=== PATIENT | female | born 1960 | race Caucasian/White ===

== ENCOUNTER 2018-03-03 07:01 | Emergency (ER) | payer BC, OTHER ==
--- NOTE | 2018-03-03 07:23 | UC ---
Respiratory Complaint HPI - HPI Summary HPI Summary: The patient is a 57-year-old female with a 2 day history of fever chills and cough. SHe feels slightly dyspneic with exertion. Her cough has not been productive. She has had no nausea vomiting or diarrhea. Denies any runny nose nasal congestion or sinus pain. She has no history of pneumonia. She denies any chest pain. She states her blood pressure tends to run on the low side. SHe has been feeling slightly weak and dizzy. She denies any leg pain or swelling. He states that her chest feels wheezy on the right side. - History of Current Complaint Chief Complaint: UCRespiratory Stated Complaint: FEVER CONGESTION Time Seen by Provider: 03/03/18 07:16 Hx Obtained From: Patient Hx Last Menstrual Period: IUD in place Onset/Duration: Gradual Onset, Lasting Days Timing: Constant Severity Initially: Mild Severity Currently: Moderate Pain Intensity: 4 Pain Scale Used: 0-10 Numeric Character: Cough: Nonproductive Aggravating Factors: Allergens Alleviating Factors: Nothing Associated Signs And Symptoms: Positive: Dyspnea - with walking up hills, Fever , Chills, Wheezing - Allergies/Home Medications Allergies/Adverse Reactions: Allergies Allergy/AdvReac Type Severity Reaction Status Date / Time No Known Allergies Allergy Verified 03/03/18 07:15 PMH/Surg Hx/FS Hx/Imm Hx Previously Healthy: Yes - Surgical History Surgical History: Yes Surgery Procedure, Year, and Place: left hip arthroplasty/replacement - Family History Known Family History: Positive: Hypertension, Diabetes, Other - OA - Social History Alcohol Use: Weekly Alcohol Amount: 1-2 PER WEEK Substance Use Type: None Smoking Status (MU): Never Smoked Tobacco - Immunization History Most Recent Influenza Vaccination: 2014 Most Recent Tetanus Shot: 04/23/15 Most Recent Pneumonia Vaccination: HAS NOT HAD Review of Systems Constitutional: Fever, Chills, Fatigue Skin: Negative Eyes: Negative ENT: Negative Respiratory: Shortness Of Breath - with hill walking, Cough Cardiovascular: Negative Gastrointestinal: Negative Genitourinary: Negative Motor: Negative Neurovascular: Negative Musculoskeletal: Negative Neurological: Negative Psychological: Negative All Other Systems Reviewed And Are Negative: Yes Physical Exam Triage Information Reviewed: Yes Appearance: Well-Appearing, No Pain Distress, Well-Nourished Vital Signs: Initial Vital Signs Temp 97.1 F 03/03/18 07:08 Pulse 92 03/03/18 07:08 Resp 20 03/03/18 07:08 BP 94/76 03/03/18 07:08 Pulse Ox 96 03/03/18 07:08 Vital Signs Reviewed: Yes Eyes: Positive: Conjunctiva Clear ENT: Positive: Hearing grossly normal. Negative: Nasal congestion, Nasal drainage, Trismus, Muffled voice, Hoarse voice Neck: Positive: Supple, Nontender, No Lymphadenopathy Respiratory: Positive: No respiratory distress, Wheezing - right sided >>left Cardiovascular: Positive: RRR, No Murmur Musculoskeletal: Positive: ROM Intact, No Edema Neurological: Positive: Alert, Muscle Tone Normal Psychological Exam: Normal Skin Exam: Normal UC Diagnostic Evaluation - Laboratory O2 Sat by Pulse Oximetry: 96 - Radiology Xray Interpretation: Positive (See Comments) - INTERVAL APPEARANCE OF PATCHY DENSITY AT THE RIGHT LUNG BASE THAT COULD BE PNEUMONIA IN Radiology Interpretation Completed By: Radiologist Re-Evaluation - Re-Evaluation First Eval Re-Evaluation Time: 09:05 Change: Improved - now normotensive (about 136 /86) Respiratory Course/Dx - Differential Dx/Diagnosis Provider Diagnoses: pnuemonia Discharge - Sign-Out/Discharge Documenting (check all that apply): Patient Departure All imaging exams completed and their final reports reviewed: Yes - Discharge Plan Condition: Stable Disposition: HOME Prescriptions: Amoxicillin/Clavulanate TAB* [Augmentin TAB 875*] 875 mg PO BID #14 tab Patient Education Materials: Pneumonia (ED) Referrals: Jass Redd MD [Primary Care Provider] - 2 Weeks Additional Instructions: recheck in 3 days if still febrile recheck sooner for new or worsening symptoms robitussin or mucinex rest fluids the radiologist has suggested a follow up CXR to assure resolution of your pneumonia I suggest having that done in 2-3 weeks - Billing Disposition and Condition Condition: STABLE Disposition: Home
--- NOTE | 2018-03-03 08:06 | RAD ---
INDICATION: Fever and cough COMPARISON: Chest x-ray dated May 07, 2015 TECHNIQUE: PA and lateral views of the chest were obtained. FINDINGS: The heart and mediastinum are normal in size and contour. There is questionable patchy density at the right lower lung not definitely seen on the previous chest x-ray. On the lateral view this appears to be localized to the posterior lower thorax. Elsewhere the lungs are grossly clear. Visualized bones are normal for the patient's age. There is no radiographic evidence of free air beneath the diaphragm IMPRESSION: INTERVAL APPEARANCE OF PATCHY DENSITY AT THE RIGHT LUNG BASE THAT COULD BE PNEUMONIA IN THE CORRECT CLINICAL SETTING. I RECOMMEND FOLLOW-UP CHEST X-RAY AFTER APPROPRIATE COURSE OF THERAPY TO ASCERTAIN RESOLUTION.
[2018-03-03] MEDS ORDERED: NS 0.9% 1000 ML* 1,000 ML BOLUS ONE (08:13)
[2018-03-03] MEDS ORDERED: cefTRIAXone VIAL(*) 1,000 MG in NS 0.9% 50 ML* 50 ML IVPB ONE (08:13)
[2018-03-03] MEDS ORDERED: cefTRIAXone VIAL(*) 1,000 MG VIAL ONE (08:25)
[2018-03-03 09:36] VITALS: BP 134/84
== END 2018-03-03 10:42 | disposition home or self-care (01) ==
LOC: UCEAST 07:01
DX: J18.9 Pneumonia, unspecified organism (principal); Z96.642 Presence of left artificial hip joint
CPT/HCPCS: 71046; 96360; 96361; 99212; G0463; J0696

== ENCOUNTER 2018-10-21 07:00 | Inpatient (IN) | payer BC ==
--- NOTE | 2018-10-12 10:22 | HP ---
HISTORY AND PHYSICAL: DATE OF ADMISSION/SURGERY: 10/21/18 DATE OF OFFICE VISIT: 10/08/18 SURGEON: Bee Spicer MD* (dictated by GIOVANA Fair). PROCEDURE: Right total hip arthroplasty. CHIEF COMPLAINT: Right hip pain. HISTORY OF PRESENT ILLNESS: Ms. Abel is a 57-year-old who complains of right hip pain. She has failed conservative treatment and elected to proceed with a right total hip arthroplasty. PAST MEDICAL HISTORY: Denies. PAST SURGICAL HISTORY: Left total hip arthroplasty, labral repair on the left hip, and a tonsillectomy. CURRENT MEDICATIONS: None. ALLERGIES: None. FAMILY HISTORY: Coronary artery disease. SOCIAL HISTORY: She is a 57-year-old female. She lives with her spouse. She does not smoke or use drugs. She uses occasional alcohol. REVIEW OF SYSTEMS: A complete 14-point review of systems was reviewed with the patient, was all negative and noncontributory. She denies history of DVT, PE, hepatitis, HIV, or anesthesia problems. PHYSICAL EXAMINATION GENERAL: She is well developed, well nourished, in no acute distress. She is alert and oriented x3, pleasant mood and appropriate affect. VITAL SIGNS: She stands 65 inches tall, weighs 169 pounds, blood pressure 116/ 68, heart rate is 68. MUSCULOSKELETAL: Right lower extremity: Skin is intact. There are no open wounds or abrasions. She walks with an antalgic type gait favoring her right hip. She has 95 degrees of hip flexion, 0 degrees of internal rotation, 35 degrees of external rotation. She is able to dorsiflex and plantarflex. There is a 2+ dorsalis pedis pulse and an intact sensation. ASSESSMENT AND PLAN: Ms. 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 She has failed conservative treatment and elected to proceed with a right total hip arthroplasty. Surgery is scheduled for 10/21/[address] Spicer discussed the risks and benefits of the surgery at today's visit and all of her questions were answered. She will follow up with Dr. Spicer 2 weeks after the surgery. GIOVANA FAIR [id number]/[facility] #: [id number] [facility]
[~2018-10-21 07:00] MED LIST: Acetaminophen IV 1GM/100ML * 1,000 MG/100 ML VIAL IVPB ONE; Buffered Lidocaine 1% SYRIN* 1 ML/SYRINGE INTRADERM ONE; Dexamethasone IV* 4 MG/ML 1 ML (4 MG) IV SLOW PU ONE; Famotidine IV* 10 MG/ML 2 ML (20 mg) IV ONE; Gabapentin CAP(*) 300 MG PO ONE; Lactated Ringers 1000 ML Bag* 1,000 ML IV SCH; Tranexamic Acid 1,000 MG in NS 0.9% 50 ML* (outpatient use) IV SCH; celeCOXIB CAP* 200 MG PO ONE
--- OUTSIDE RECORDS SUMMARY | 2018-10-21 07:04 | XMS REPORT | Continuity of Care Document ---
:1960 External Reference #:[id number] Author Name Jazzmine Gomez Care Team Providers Name Role Phone Oneal Patel MD Care Team Information Supervisor [employer] Unavailable Jass Redd MD Primary Care Physician Unavailable Payers Date Identification Numbers Payment Provider Subscriber Effective: 2014 Policy Number: [id number] [facility] Cliff Rojas PayID: [id number] [address] [place] [address] Advance Directives Description No Information Available Problems Active Problems Provider Date Localized, primary osteoarthritis of the pelvic Bee Spicer M.D. Onset: region and thigh Localized, primary osteoarthritis Bee Spicer M.D. Onset: 03/09/2015 Prosthetic arthroplasty of the hip Bee Spicer M.D. 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 07/02/2018 Capsules to dental work No Active Unknown 06/27/2015 - Medications 07/31/2015 Percocet 1-2 tablets by 90tabs M16.12 Dali 05/07/2015 - 5-325mg mouth every 4-6 SANDIP [place] 06/22/2015 Tablets hours as needed for pain Colace 1 by mouth up to 3 90caps M16.12 Dali 05/07/2015 - 100mg times a day as S[place]IP [place] 06/22/2015 Capsules needed for constipation. Coumadin 1 by mouth daily 45tabs M16.12 Dali 05/07/2015 - 2mg post operatively or SANDIP [place] 06/22/2015 Tablets as directed by freida/. do not take this medication prior to surgery Ibuprofen as needed Unknown - 200mg 06/22/2015 Tablets Tylenol as needed Unknown - 325mg 06/22/2015 Tablets Cephalexin Stefanie Silva - 500mg Unknown Capsules Immunizations Description No Information Available Vital Signs Date Vital Result Comment 10/08/2018 8:36am Height 65 inches 5'5" Weight 169.00 lb Heart Rate 68 /min BP Systolic 116 mmHg BP Diastolic 68 mmHg Respiratory Rate 18 /min Body Temperature 97.3 F Pain Level 2 BMI (Body Mass Index) 28.1 kg/m2 07/30/2018 8:15am Height 65 inches 5'5" Weight 166.00 lb BP Systolic 111 mmHg BP Diastolic 69 mmHg Respiratory Rate 16 /min Pain Level 5 BMI (Body Mass Index) 27.6 kg/m2 06/05/2016 1:27pm Heart Rate 68 /min BP Systolic 120 mmHg BP Diastolic 70 mmHg Respiratory Rate 16 /min Body Temperature 97.2 F 05/15/2016 2:38pm Height 65 inches 5'5" Weight 170.00 lb Heart Rate 74 /min BP Systolic Sitting 122 mmHg BP Diastolic Sitting 78 mmHg Respiratory Rate 16 /min Body Temperature 97.7 F BMI (Body Mass Index) 28.3 kg/m2 05/14/2016 1:36pm Height 65 inches 5'5" Weight 170.00 lb Pain Level 0 BMI (Body Mass Index) 28.3 kg/m2 08/29/2015 8:05am Height 65 inches 5'5" Weight 175.00 lb Pain Level 0 BMI (Body Mass Index) 29.1 kg/m2 06/27/2015 8:15am Height 65 inches 5'5" Weight 175.00 lb Pain Level 0 BMI (Body Mass Index) 29.1 kg/m2 05/28/2015 12:51pm Height 65 inches 5'5" Weight 175.00 lb Body Temperature 96.2 F BMI (Body Mass Index) 29.1 kg/m2 05/07/2015 9:34am Height 65 inches 5'5" Weight 175.00 lb Heart Rate 69 /min BP Systolic Sitting 116 mmHg BP Diastolic Sitting 73 mmHg Body Temperature 98.2 F Pain Level 4 today BMI (Body Mass Index) 29.1 kg/m2 03/09/2015 3:28pm Height 65 inches 5'5" Weight 175.00 lb BMI (Body Mass Index) 29.1 kg/m2 12/28/2014 8:38am Height 65 inches 5'5" Weight 175.00 lb Heart Rate 73 /min BP Systolic 119 mmHg BP Diastolic 82 mmHg Pain Level 3 BMI (Body Mass Index) 29.1 kg/m2 Results Test Date Facility Test Result H/L Range Note CBC Auto Diff 10/08/2018 [facility] White Blood 4.6 10^3/uL N 3.5-10.[address] [place] [address] [phone] Red Blood Count 4.61 10^6/uL N 3.70-4.87 Hemoglobin 14.3 g/dL N 12.0-16.0 Hematocrit 41 % N 35-47 Mean Corpuscular Volume 89 fL N 80-97 Mean Corpuscular Hemoglobin 31 pg N 27-31 Mean Corpuscular HGB Conc 35 g/dL N 31-36 Red Cell Distribution Width 14 % N 10.5-15 Platelet Count 291 10^3/uL N 150-450 Mean Platelet Volume 7.4 fL N 7.4-10.4 Abs Neutrophils 2.5 10^3/uL N 1.5-7.7 Abs Lymphocytes 1.6 10^3/uL N 1.0-4.8 Abs Monocytes 0.4 10^3/uL N 0-0.8 Abs Eosinophils 0.1 10^3/uL N 0-0.6 Abs Basophils 0.0 10^3/uL N 0-0.2 Abs Nucleated RBC 0.0 10^3/uL Granulocyte % 54.3 % Lymphocyte % 35.0 % Monocyte % 8.3 % Eosinophil % 1.5 % Basophil % 0.9 % Nucleated Red Blood Cells % 0.1 Urinalysis Profile 10/08/2018 [facility] Urine Color Straw [address] [place] [address] [phone] Urine Appearance Clear Urine Specific [place] 1.004 Low 1.010-1.030 Urine pH 5.0 N 5-9 Urine Urobilinogen Negative Negative Urine Ketones Negative Negative Urine Protein Negative Negative Urine Leukocytes 2+ Abnormal Negative Urine Blood 1+ Abnormal Negative Urine Nitrite Negative Negative Urine Bilirubin Negative Negative Urine Glucose Negative Negative Urine White Blood Cell Absent Absent Urine Red Blood Cell Trace(0-2/hpf) Absent Urine Bacteria 1+ Abnormal Absent Urine Squamous Epithelial Cell Present Abnormal Absent Comp Metabolic Panel 10/08/2018 [facility] Sodium 139 mmol/L N 135-145 [address] [place] [address] [phone] Potassium 4.3 mmol/L N 3.5-5.0 Chloride 105 mmol/L N 101-111 Co2 Carbon Dioxide 28 mmol/L N 22-32 Anion Gap 6 mmol/L N 2-11 Glucose 83 mg/dL N 70-100 Blood Urea Nitrogen 15 mg/dL N 6-24 Creatinine 0.68 mg/dL N 0.51-0.95 BUN/Creatinine Ratio 22.1 High 8-20 Calcium 9.7 mg/dL N 8.6-10.3 Total Protein 7.1 g/dL N 6.4-8.9 Albumin 4.6 g/dL N 3.2-5.2 Globulin 2.5 g/dL N 2-4 Albumin/Globulin Ratio 1.8 N 1-3 Total Bilirubin 0.60 mg/dL N 0.2-1.0 Alkaline Phosphatase 77 U/L N 34-104 Alt 8 U/L N 7-52 Ast 16 U/L N 13-39 Egfr Non- 89.8 >60 Egfr 108.7 >60 1 Inr/Protime 10/08/2018 [facility] Inr 1.01 N 0.82-1.[address] [place] [address] [phone] Laboratory test 10/08/2018 [facility] Partial 30.8 seconds N 26.0-36.[address] [place] [address] PTT [phone] Type & Screen 10/08/2018 [facility] Patient B Positive [address] [place] [address] [phone] Antibody Screen POSITIVE Laboratory test 10/08/2018 [facility] Antibody Identification M finding [address] [place] [address] [phone] Antibody Id Autocontrol 0 Direct Guzman NEGATIVE Urine Culture And 10/08/2018 [facility] Urine Culture SEE RESULT [address] [place] [address] [phone] Xray 05/14/2016 [facility] Hip Left 2 Views <pending> [address] And Pelvis [id number] - [place] [phone] Laboratory test 05/07/2015 [facility] Antibody M 4, [address] [place] [address] [phone] Antibody Id Autocontrol 0 N Direct Antiglobulin Test NEGATIVE N Urine Culture And Sensitivities SEE RESULT BELOW 6 Type & Screen 05/07/2015 [facility] Patient Blood Type B Positive N [address] [place] [address] [phone] Antibody Screen POSITIVE N Comp Metabolic Panel 05/07/2015 [facility] Sodium 136 mmol/L N 133-[address] [place] [address] [phone] Potassium 4.0 mmol/L N 3.5-5.0 Chloride 102 mmol/L N 101-111 Co2 Carbon Dioxide 28 mmol/L N 22-32 Anion Gap 6 mmol/L N 2-11 Glucose 81 mg/dL N 70-100 Blood Urea Nitrogen 11 mg/dL N 6-24 Creatinine 0.70 mg/dL N 0.51-0.95 BUN/Creatinine Ratio 15.7 N 8-20 Calcium 9.3 mg/dL N 8.6-10.3 Total Protein 7.0 g/dL N 6.4-8.9 Albumin 4.3 g/dL N 3.2-5.2 Globulin 2.7 g/dL N 2-4 Albumin/Globulin Ratio 1.6 N 1-3 Total Bilirubin 0.40 mg/dL N 0.2-1.0 Alkaline Phosphatase 70 U/L N 34-104 Alt 7 U/L N 7-52 Ast 14 U/L N 13-39 Egfr Non- 87.9 N >60 Egfr 113.0 N >60 7 Laboratory test 05/07/2015 [facility] Partial 33.2 seconds N 26.0-36.3 [address] [place] [address] PTT [phone] Inr/Protime 05/07/2015 [facility] Inr 0.99 N 0.89-1.[address] [place] [address] [phone] CBC No Diff 05/07/2015 [facility] White Blood 6.7 10^3/uL N 4.8-10.[address] [place] [address] [phone] Red Blood Count 4.60 10^6/uL N 4.0-5.4 Hemoglobin 13.6 g/dL N 12.0-16.0 Hematocrit 42 % N 35-47 Mean Corpuscular Volume 90 fL N 80-97 Mean Corpuscular Hemoglobin 30 pg N 27-31 Mean Corpuscular HGB Conc 33 g/dL N 31-36 Red Cell Distribution Width 15 % N 10.5-15 Platelet Count 353 10^3/uL N 150-450 Mean Platelet Volume 7 um3 Low 7.4-10.4 Urinalysis Profile 05/07/2015 [facility] Urine Color Yellow [address] [place] [address] [phone] Urine Appearance Clear N Urine Specific [place] 1.012 N 1.010-1.030 Urine pH 5.0 N 5-9 Urine Urobilinogen Negative N Negative Urine Ketones Negative N Negative Urine Protein Negative N Negative Urine Leukocytes Negative N Negative Urine Blood 1+ Abnormal Negative Urine Nitrite Negative N Negative Urine Bilirubin Negative N Negative Urine Glucose Negative N Negative Urine White Blood Cell Trace(0-5/hpf) N Absent Urine Red Blood Cell Trace(0-2/hpf) N Absent Urine Bacteria Absent N Absent Urine Squamous Epithelial Cell Present Abnormal Absent 1 Because ethnic data is not always readily available, this report includes an eGFR for both -Americans and non- Americans. The National Kidney Disease Education Program (NKDEP) does not endorse the use of the MDRD equation for patients that are not between the ages of 18 and 70, are , have extremes of body size, muscle mass, or nutritional status, or are non- or non-. According to the National Kidney Foundation, irrespective of diagnosis, the stage of the disease is based on the level of kidney function: Stage Description GFR(mL/min/1.73 m(2)) 1 Kidney damage with normal or decreased GFR 90 2 Kidney damage with mild decrease in GFR 60-89 3 Moderate decrease in GFR 30-59 4 Severe decrease in GFR 15-29 5 Kidney failure <15 (or dialysis) 2 Standard intensity warfarin therapeutic range: 2.0-3.0 High intensity warfarin therapeutic range: 2.5-3.5 3 SEE RESULT BELOW Name: OMNICA ROJAS ANN : [address]: Bee Spicer MD Acct: [id number] Unit: [id number] AGE: 57 Location: [facility] Re10/08/18 SEX: F Status: REG REF SPEC: [id number] WISAM: 10/08/18-[address] [facility] [address]: Bee Spicer MD REQ: [id number] RECD: 10/08/183858 STATUS: JAMEY MAYER DR: Jass Redd MD _ SOURCE: URINE SPDESC: ORDERED: Urine Culture Urine Source: Random Procedure Result Reported Site Urine Culture Final 10/09/18- 1421 ML No Growth (<1,000 CFU/mL) * ML - Main Lab . END OF REPORT DEPARTMENT OF PATHOLOGY, [address] [place] [address] Milton Atkinson M.D. Director JAY[facility] # [id number] 4 SURGERY 05/15/15 5 SHOWING DOSAGE 6 SEE RESULT BELOW Name: MONICA ROJAS : [address]: Bee Spicer MD Acct: [id number] Unit: [id number] AGE: 54 Location: PAT Re05/07/15 SEX: F Status: REG REF SPEC: [id number] WISAM: 05/07/15-[address] [facility] [address]: Bee Spicer MD REQ: [id number] RECD: 05/07/15 STATUS: JAMEY MAYER DR: Jass Redd MD _ [facility] ORDERED: Urine Culture COMMENTS: SURGERY 05/15/15 Procedure Result Reported Site Urine Culture Final 05/08/15- 1033 ML No growth of clinically significant organisms * ML - MAIN LAB (PSC1) . END OF REPORT * ML=Testing performed at Main Lab DEPARTMENT OF PATHOLOGY, [address] [place] [address] Milton Atkinson M.D. Director [facility] # [id number] 7 Because ethnic data is not always readily available, this report includes an eGFR for both -Americans and non- Americans. The National Kidney Disease Education Program (NKDEP) does not endorse the use of the MDRD equation for patients that are not between the ages of 18 and 70, are , have extremes of body size, muscle mass, or nutritional status, or are non- or non-. According to the National Kidney Foundation, irrespective of diagnosis, the stage of the disease is based on the level of kidney function: Stage Description GFR(mL/min/1.73 m(2)) 1 Kidney damage with normal or decreased GFR 90 2 Kidney damage with mild decrease in GFR 60-89 3 Moderate decrease in GFR 30-59 4 Severe decrease in GFR 15-29 5 Kidney failure <15 (or dialysis) 8 SURGERY 05/15/15 Procedures Date Code Description Status 05/15/2015 77884 THR Total Hip Replacement Completed 05/15/2015 16653 THR Total Hip Replacement Completed Encounters Type Date Location Provider Dx Diagnosis Office Visit 07/30/2018 Orthopedic Bee Spicer, M25.551 Pain in right hip 8:00a [facility] M16.11 Unilateral primary osteoarthritis, right hip Z96.642 Presence of left artificial hip joint Office Visit 06/05/2016 1:30p Surgical Yehuda Lowry L03.012 [facility] MD, left finger FACS L03.811 Cellulitis of head [any part, except face] Office Visit 05/15/2016 2:45p [facility] 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 replacement surgery Z96.642 Presence of left artificial hip joint M25.552 Pain in left hip Office Visit 08/29/2015 8:00a Orthopedic Mamadou Alex47.1 [facility] following joint [facility] replacement surgery Z96.642 Presence of left artificial hip joint Office Visit 03/09/2015 Orthopedic Bee M17.12 Unilateral primary 2:30p [facility] Spicer osteoarthritis, left [facility] knee M25.552 Pain in left hip Office Visit 12/28/2014 8:30a Orthopedic Bee 715.15 Osteoarthrosis [facility] Spicer Localized Prim [facility] Pelvic & Thigh 719.45 Pain Joint Pelvic Region & Thigh Plan of Treatment Future Appointment(s):11/01/2018 11:30 am - Bee Spicer M.D. at [facility]10/21/2018 9:15 am - MIKAL Morataya at [facility]10/21/2018 9:15 am - GIOVANA Mahoney at [facility]10/21/2018 9:15 am - Bee Spicer M.D. at [facility]10/08/2018 - Bee Spicer M.D.M25.551 Pain in right hipFollow up:Follow up: 2 weeks after eatngkhE96.11 Unilateral primary osteoarthritis, right hip
--- OUTSIDE RECORDS SUMMARY | 2018-10-21 07:04 | XMS REPORT | Continuity of Care Document ---
:1960 External Reference #:[id number] Author Name Olu Arnold MD Address [address] [facility] [place] [address] Care Team Providers Name Role Phone Blossom Redd MD Care Team Information Tax Compliance Officer Unavailable Blossom Redd MD Primary Care Physician Unavailable Payers Date Identification Numbers Payment Provider Subscriber Effective: 2017 Policy Number: [id number] [place] [employer] Cliff Rojas Group Number: [id number] [address] PayID: [id number] [place] [address] Advance Directives Description No Information Available Problems Active Problems Provider Date Adult health examination Blossom Redd M.D. Onset: 04/23/2015 Arthralgia of the pelvic region and thigh Blossom Redd M.D. 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 ,[employer] Advance Directive The patient has an advance directive Tobacco Use Start: Unknown Never Smoked Cigarettes ETOH Use Rarely consumes alcohol Tobacco Use Start: Unknown Nonsmoker Smoking Status Reviewed: 09/29/18 Nonsmoker Allergies, Adverse Reactions, Alerts Active Allergies Reaction Severity Comments Date NKDA 06/23/2011 Inactive Allergies Nka 09/04/1997 Medications Active Medications SIG Qnty Indications Ordering Provider Date No Active Medications Unknown 12/29/2017 History Medications Cephalexin 1 by mouth twice 14tabs L03.012 Stefanie Licona, 05/14/2016 - 500mg a day for 7d [employer] 12/29/2017 Tablets No Active Unknown 11/14/2014 - Medications 05/14/2016 Physical Therapy treatment and Blossom Arzate 07/22/2005 - evaluation Devorah Redd 10/03/2006 l hip pain Ciloxan 1-2 QTTS In Both 5ml Stefanie Ricardo, 10/11/2002 - Eyes Q 2H W/A For [employer]IAN 10/31/2002 2D Then Q 4H For 3-5D Physical Therapy Treatment And Stefanie Licona, 10/11/2002 - Evaluation L Ankle [employer]IAN 06/11/2005 Strain Emycin 1 PO tid 30units Larry Hannah, 01/18/2001 - 333mg M.DAdali 10/11/2002 Prednisone 4 qd x 2 Days, 20tabs Larry Hannah, 01/18/2001 - 10mg Then 3 qd x 2 M.D. 10/11/2002 Tabs Days, Then 2 qd x 2 Days, Then 1 qd x 2 Days Zithromax 2 Tabs Day 1 6unkylee Harrison 07/25/2000 - 250mg Devorah Waters 07/30/2000 1 Tab qd Days 2 Thru 5 Medrol Dosepack as Directed 1units Brennan Coats 12/02/1999 - Devorah Carey 07/25/2000 [facility] 12/02/1999 - 10mg Devorah Carey 07/25/2000 Zantac 1 PO qd 7unkylee Coats 12/02/1999 - 150mg Devorah Carey 07/25/2000 Fioricet 1 PO qid prn For 15units Erica 05/08/1999 - Bubba Rolon, 05/15/1999 Without Afnp-C Codiene Immunizations CPT Code Status Date Vaccine Lot # [id number] Given 04/08/2018 Zoster (Shingles) Vaccine (HZV), Recombinant, [id number] Subunit, Adjuvanted [id number] Given 04/08/2018 Pneumococcal Conjugate Vacc-13 [id number] Given 12/29/2017 Zoster (Shingles) Vaccine (HZV), Recombinant, [id number] Subunit, Adjuvanted 73208 Given 04/23/2015 Tdap Tetanus, W Pertussis [id number] Given 01/02/1999 Td Immunization, For Use In Individuals 7 Years Or Older Vital Signs Date Vital Result Comment 09/29/2018 8:18pm BP Systolic 104 mmHg BP Diastolic 76 mmHg Heart Rate 60 /min Body Temperature 97.0 F Respiratory Rate 16 /min O2 % BldC Oximetry 99 % Ra Height 64.50 inches 5'4.50" Weight 166.00 lb BMI (Body Mass Index) 28.1 kg/m2 03/18/2018 3:08pm BP Systolic 100 mmHg BP Diastolic 58 mmHg Heart Rate 70 /min Body Temperature 97.3 F Respiratory Rate 17 /min O2 % BldC Oximetry 97 % Ra Height 64.50 inches 5'4.50" Weight 166.38 lb BMI (Body Mass Index) 28.1 kg/m2 12/29/2017 10:48am BP Systolic 126 mmHg BP Diastolic 56 mmHg Heart Rate 62 /min Body Temperature 97.7 F Respiratory Rate 15 /min Height 64.50 inches 5'4.50" Weight 167.38 lb BMI (Body Mass Index) 28.3 kg/m2 05/14/2016 11:43am BP Systolic 110 mmHg BP Diastolic 70 mmHg Heart Rate 60 /min Body Temperature 98.6 F Respiratory Rate 18 /min Weight 172.00 lb 04/23/2015 3:20pm BP Systolic 108 mmHg BP Diastolic 70 mmHg Heart Rate 66 /min Body Temperature 98.2 F Respiratory Rate 16 /min Height 65 inches 5'5" Weight 180.25 lb BMI (Body Mass Index) 30.0 kg/m2 01/15/2015 8:38am BP Systolic 120 mmHg BP Diastolic 70 mmHg Heart Rate 60 /min Body Temperature 98.0 F Respiratory Rate 18 /min Height 65 inches 5'5" Weight 178.00 lb BMI (Body Mass Index) 29.6 kg/m2 11/14/2014 8:33am BP Systolic 110 mmHg BP Diastolic 70 mmHg Heart Rate 84 /min Body Temperature 97.7 F Respiratory Rate 16 /min Height 65 inches 5'5" Weight 174.00 lb BMI (Body Mass Index) 29.0 kg/m2 10/25/2014 1:48pm BP Systolic 110 mmHg BP Diastolic 70 mmHg Heart Rate 60 /min Body Temperature 98.2 F Respiratory Rate 16 /min Height 65 inches 5'5" Weight 172.00 lb BMI (Body Mass Index) 28.6 kg/m2 11/18/2013 11:43am BP Systolic 122 mmHg BP Diastolic 88 mmHg Heart Rate 74 /min Body Temperature 98.5 F Respiratory Rate 16 /min Height 65 inches 5'5" Weight 164.00 lb BMI (Body Mass Index) 27.3 kg/m2 06/23/2011 2:53pm BP Systolic 102 mmHg BP Diastolic 60 mmHg Heart Rate 72 /min Respiratory Rate 14 /min Height 65 inches 5'5" Weight 160.00 lb BMI (Body Mass Index) 26.6 kg/m2 08/20/2009 8:03am BP Systolic 102 mmHg BP Diastolic 64 mmHg Heart Rate 66 /min Body Temperature 97.2 F Height 65 inches 5'5" Weight 149.00 lb BMI (Body Mass Index) 24.8 kg/m2 11/23/2006 9:31am BP Systolic 102 mmHg BP Diastolic 62 mmHg Heart Rate 68 /min Body Temperature 97.7 F Height 65 inches 5'5" Weight 162.00 lb BMI (Body Mass Index) 27.0 kg/m2 10/02/2006 3:28pm BP Systolic 110 mmHg BP Diastolic 62 mmHg Heart Rate 64 /min Body Temperature 97.9 F Height 65 inches 5'5" Weight 163.00 lb BMI (Body Mass Index) 27.1 kg/m2 06/11/2005 10:47am BP Systolic 102 mmHg BP Diastolic 60 mmHg Heart Rate 72 /min Height 65 inches 5'5" Weight 155.00 lb BMI (Body Mass Index) 25.8 kg/m2 05/14/2004 2:37pm BP Systolic 110 mmHg BP Diastolic 70 mmHg Heart Rate 74 /min Height 65 inches 5'5" Weight 159.00 lb BMI (Body Mass Index) 26.5 kg/m2 02/21/2003 7:05pm BP Systolic 102 mmHg BP Diastolic 56 mmHg Heart Rate 64 /min Body Temperature 98.0 F Height 65 inches 5'5" Weight 160.00 lb BMI (Body Mass Index) 26.6 kg/m2 10/31/2002 3:55pm BP Systolic 100 mmHg BP Diastolic 70 mmHg Body Temperature 98.7 F Weight 154.00 lb 10/11/2002 1:36pm BP Systolic 110 mmHg BP Diastolic 60 mmHg Body Temperature 98.8 F Weight 160.00 lb 01/18/2001 4:27pm BP Systolic 110 mmHg BP Diastolic 74 mmHg Body Temperature 98.6 F Weight 155.00 lb 08/26/2000 7:39pm BP Systolic 114 mmHg BP Diastolic 66 mmHg Heart Rate 64 /min Body Temperature 97.1 F Weight 147.00 lb 07/25/2000 10:16am BP Systolic 104 mmHg BP Diastolic 66 mmHg Heart Rate 76 /min Body Temperature 97.5 F Weight 148.50 lb 02/22/2000 10:23am BP Systolic 100 mmHg Ra, SM Cuff BP Diastolic 60 mmHg Ra, SM Cuff Heart Rate 72 /min Reg Body Temperature 97.0 F Tymp Weight 147.00 lb 12/02/1999 1:06pm BP Systolic 100 mmHg LA SM Cuff BP Diastolic 60 mmHg LA SM Cuff Heart Rate 60 /min Reg Body Temperature 97.5 F Weight 170.00 lb 05/08/1999 3:17pm BP Systolic 100 mmHg BP Diastolic 80 mmHg Body Temperature 97.8 F Weight 143.00 lb 01/02/1999 10:15am BP Systolic 98. mmHg BP Diastolic 70 mmHg Weight 151.00 lb 08/22/1998 11:46am Body Temperature 98.6 F Weight 151.00 lb 09/04/1997 3:01pm BP Systolic 114 mmHg BP Diastolic 70 mmHg Height 63.25 inches 5'3.25" Weight 154.00 lb Results Test Date Facility Test Result H/L Range Note Laboratory test 12/29/2017 [facility] Cytology SEE RESULT 1 finding Thinprep BELOW w/rfx([facility]) CBC Electronic 12/29/2017 Cameron Eliza(a) WBC 6.8 x10^3/UL 4.0-10.0 Fma RBC 4.61 x10^6/UL 3.93-6.00 HGB 13.8 g/dL 12.0-17.0 HCT 41 % 35-50 MCV 87.9 fL 80.0-95.0 MCH 29.9 pg 25.6-32.2 MCHC 34.1 g/dL 32.2-36.0 RDW-CV 13.6 % 11.6-14.4 PLT 291 x10^3/UL 163-400 MPV 9.5 fL 9.4-12.4 Jessica# 4.44 x10^3/UL 1.56-6.13 Lymph# 1.63 x10^3/UL 1.18-3.74 [place]# 0.63 x10^3/UL 0.24-0.82 Eos # 0.1 x10^3/UL 0.0-0.5 Baso # 0.03 x10^3/UL 0.01-0.08 Jessica% 65.3 % 34.0-70.0 Lymph % 23.9 % 20.0-52.0 [place]% 9.3 % 5.0-12.0 Eos% 1.0 % 0.7-7.0 Baso% 0.4 % 0.1-1.2 Laboratory test 12/29/2017 Rakesh Kay(a) Free T4 0.92 ng/dL 0.75- 1.54 finding TSH 1.05 mIU/L 0.50-6.00 Lipid Profile 12/29/2017 Rakesh Kay(a) Cholesterol 236 mg/dL High 120-200 Triglycerides 124 mg/dL 30-200 HDL Cholesterol 59 mg/dL 30-85 LDL (Calculated) 152 CALC High 0-129 VLDL Cholesterol 25 mg/dL 0-50 HDL Risk Factor 4.0 CALC 0.0-4.4 Comprehensive Metabolic 12/29/2017 Rakesh Kay(a) Sodium 137 mEq/L 134-149 Prof Potassium 4.0 mEq/L 3.6-5.5 Chloride 107 mEq/L 94-112 Carbon Dioxide 25 mEq/L 21-32 Glucose 89 mg/dL 70-105 BUN 16 mg/dL 6-26 Creatinine 0.7 mg/dL 0.6-1.4 BUN/Creat Ratio 22.9 CALC 8.0-36.0 Calcium 8.9 mg/dL 8.6-10.2 Total Protein 7.1 g/dL 6.4-8.3 Albumin 4.5 g/dL 3.8-5.5 Globulin 2.6 g/dL 2.0-4.8 A/G Ratio 1.7 CALC 0.6-2.3 Alk. Phosphatase 78 U/L 30-110 Alt (SGPT) 9 U/L 7-35 Ast (Sgot) 19 U/L 5-34 Total Bilirubin 0.5 mg/dL 0.2-1.3 GFR Non- >60 ml/min/1.73m^ >=60 GFR >60 ml/min/1.73m^ >=60 Urinalysis Profile 05/07/2015 [facility] Urine Color Yellow N 2 Urine Appearance Clear N Urine Specific [place] 1.012 N 1.010-1.030 Urine pH 5.0 N [...] Urine Squamous Epithelial Cell Present Abnormal Absent CBC No Diff 05/07/2015 [facility] White Blood Count 6.7 10^3/uL N 4.8-10.8 Red Blood Count 4.60 10^6/uL N 4.0-5.4 Hemoglobin 13.6 g/dL N 12.0-16.0 Hematocrit 42 % N 35-47 Mean Corpuscular Volume 90 fL N 80-97 Mean Corpuscular Hemoglobin 30 pg N 27-31 Mean Corpuscular HGB Conc 33 g/dL N 31-36 Red Cell Distribution Width 15 % N 10.5-15 Platelet Count 353 10^3/uL N 150-450 Mean Platelet Volume 7 um3 Low 7.4-10.4 Inr/Protime 05/07/2015 [facility] Inr 0.99 N 0.89-1.11 Laboratory test finding 05/07/2015 [facility] Partial Thrombo 33.2 seconds N 26.0-36.3 3 Time PTT Comp Metabolic Panel 05/07/2015 [facility] Sodium 136 mmol/L N 133-145 Potassium 4.0 mmol/L N 3.5-5.0 Chloride 102 [...] 87.9 N >60 Egfr 113.0 N >60 4 Type & Screen 05/07/2015 [facility] Patient Blood Type B Positive N Antibody Screen POSITIVE N Laboratory test finding 05/07/2015 [facility] Antibody Identification M 5 Antibody Id Autocontrol 0 N Direct Antiglobulin Test NEGATIVE N Urine Culture And Sensitivities SEE RESULT BELOW 6 Complete Blood Count 04/23/2015 Cameron Eliza(fma) WBC 8.0 x10^3/UL 3.6 -9.6 RBC 4.69 x10^6/UL 3.90-5.70 HGB 14.0 g/dL 12.1-17.2 HCT 41 % 36-50 MCV 87.0 fL 82.2-97.4 MCH 29.9 pg 27.6-33.3 MCHC 34.3 g/dL 33.0-35.5 RDW 15.2 % High 11.6-13.7 PLT 325 x10^3/UL 150-400 MPV 6.1 fL Low 7.4-10.4 Gran # 5.2 x10^3/UL 1.5-7.2 Lymph# 2.4 x10^3/UL 0.7-4.9 [place]# 0.4 x10^3/UL 0.1-0.9 Gran % 64.6 % 42.2-75.2 Lymph % 30.4 % 20.5-51.1 [place]% 5.0 % 1.7-9.3 Comp. Metabolic 04/23/2015 [facility] Glucose, Serum 87 mg/dL 65-99 7 Panel (14) [address] [place] [phone] (609)- - BUN 13 mg/dL 6-24 Creatinine, Serum 0.68 mg/dL 0.57-1.00 eGFR If NonAfricn Am 101 mL/min/1.73 >59 eGFR If Africn Am 116 mL/min/1.73 >59 BUN/Creatinine Ratio 19 9-23 Sodium, Serum 141 mmol/L 134-144 Potassium, Serum 4.8 mmol/L 3.5-5.2 Chloride, Serum 102 mmol/L 97-108 Carbon Dioxide, Total 23 mmol/L 18-29 Calcium, Serum 9.5 mg/dL 8.7-10.2 Protein, Total, Serum 7.2 g/dL 6.0-8.5 Albumin, Serum 4.2 g/dL 3.5-5.5 Globulin, Total 3.0 g/dL 1.5-4.5 A/G Ratio 1.4 1.1-2.5 Bilirubin, Total <0.2 mg/dL 0.0-1.2 Alkaline Phosphatase, S 77 IU/L 39-117 Ast (Sgot) 19 IU/L 0-40 Alt (SGPT) 7 IU/L 0-32 Lipid Panel 04/23/2015 [facility] Cholesterol, Total 290 mg/dL High 249-[address] [place] [phone])- - Triglycerides 424 mg/dL High 0-149 HDL Cholesterol 52 mg/dL >39 8 VLDL Cholesterol Maximino See Comment: mg/dL 5-40 9 LDL Cholesterol Calc See Comment: mg/dL 0-99 10 Comment: DNR Urinalysis, 04/23/2015 [facility] Specific 1.019 1.005-1.[address] [place] [address] [place] [phone] (606)- - pH 6.0 5.0-7.5 Urine-Color Yellow Yellow Appearance Clear Clear WBC Esterase Negative Negative Protein Negative Negative/Trace Glucose Negative Negative Glucose Reflex DNR Ketones Negative Negative Occult Blood Negative Negative Bilirubin Negative Negative Urobilinogen,Semi-Qn 0.2 EU/dL 0.2-1.0 Nitrite, Urine Negative Negative Microscopic Examination See Comment: 11 Microscopic Examination See below: Laboratory test 04/23/2015 [facility] TSH 1.310 uIU/mL 0.450-4.[address] [place] [phone] - PT And PTT 04/23/2015 [facility] Inr 0.[address] [place] [phone])- - Prothrombin Time 11.9 seconds 11.7-14.5 aPTT 27.2 seconds 23.7-35.5 Microscopic 04/23/2015 [facility] Microscopic See below: Examination [address] [place] [address] [place] [phone] (609)- - WBC 0-5 /hpf 0 - 5 RBC 0-2 /hpf 0 - 2 Epithelial Cells (non renal) 0-10 /hpf 0 - 10 Epithelial Cells (renal) DNR Casts DNR Cast Type DNR Crystals DNR Crystal Type DNR Mucus Threads Present Not Estab. Bacteria Few None seen/Few Yeast DNR Trichomonas DNR Comment DNR Laboratory test 11/14/2014 [facility] Thin Prep SEE NOTE 13 finding [address] [facility] W/HPV(Lsil/PAUL/Asc) [place] [address] [phone] Ua - Non Micro 06/23/2011 [facility] Appearance CLEAR (Fma) (607)- - Color YELLOW Glucose NEG Bilirubin NEG Ketones NEG SP Grav 1.010 Blood NEG PH 6.0 Protein NEG Urobil 0.2 Nitrite NEG Leukocytes (Fma/[facility]) NEG Laboratory test 06/23/2011 [facility] Thin Prep SEE 14 finding 28 [facility] W/HPV(Lsil/PAUL/Asc) [place] [address] [phone] Laboratory test 08/20/2009 [facility] Thin Prep SEE 15 finding 28 [facility] W/HPV(Lsil/PAUL/[place]) [place] [address] [phone] Comprehensive 08/20/2009 [facility] Glucose 82 70- 16 Metabolic 28 [facility] mg/dL [address] [place] [address] [phone] BUN 12 mg/dL 4-18 Creatinine, Serum 0.70 mg/dL 0.50-1.10 Sodium 140 mmol/L 136-146 Potassium 4.7 mmol/L 3.5-5.3 Chloride 105 mmol/L 98-110 Carbon Dioxide 28 mmol/L 20-32 Albumin 4.2 g/dL 3.5-4.7 Protein, Total 7.3 g/dL 6.4-8.3 Calcium 9.3 mg/dL 8.4-10.4 Alkaline Phosphatase 73 U/L 10-118 Sgot (Ast) 20 U/L 3-40 SGPT (Alt) 10 U/L 7-50 Bilirubin, Total 0.50 mg/dL 0.30-1.20 Laboratory 08/20/2009 [facility] TSH (Thyrotropin) 1.080 0.350-5.500 test finding 28 [facility] uIU/[place] [address] [phone] CBC 08/20/2009 [facility] WBC 6.6 x103 4.3-10.9 [address] [place] [address] [phone] RBC 4.52 x106 3.80-5.30 Hemoglobin 12.7 g/dL 11.8-15.8 Hematocrit 39.2 % 35.0-47.0 MCV 86.7 fl 82.0-98.0 MCH 28.1 pg 27.5-33.5 MCHC 32.4 g/dL 32.0-36.0 RDW 13.6 % 11.5-14.5 Platelet Count 277 x103 130-400 MPV 10.0 fl 6.5-10.5 Segmented Neutrophils 61.5 % 44.0-74.0 Lymphocytes 27.4 % 15.0-45.0 Monocytes 8.3 % 2.0-13.0 Eosinophils 2.0 % 0.0-6.0 Basophils 0.8 % 0.0-2.0 Neutrophil Absolute 4.1 x103 1.4-7.0 Lymphocytes Absolute 1.8 x103 1.0-3.4 Monocyte Absolute 0.5 x103 0.2-1.0 Eosinophil Absolute 0.1 x103 0.0-0.5 Basophil Absolute 0.1 x103 0.0-0.2 GFR Calculated 08/20/2009 [facility] GFR (Calculated) >60 17 [address] [place] [address] [phone] Laboratory test 08/20/2009 [facility] SEE IMAGE finding Inc. RPT Ua - Micro (Fma) 08/20/2009 Family Medicine Appearance clear (607)- - Color yellow Glucose neg Bilirubin neg Ketones neg SP Grav 1.010 Blood moderate # PH 6.0 Protein neg Urobil 0.2 Nitrite neg Leukocytes (Fma/[facility]) neg Hyaline - /Lpf Granular - /Lpf WBC (Fma,[facility]) 3-4 # RBC 5-7 # Mucus - /Lpf # Epith occass /Lpf # Bacteria trace /Hpf # Amorphous - /Lpf Crystals, Fluid (Fma/[facility]/CTX) - Z#Comments - Throat-Beta Strept 08/26/2008 [facility] Throat-Beta Strep NF 18 Culture CBC 10/27/2006 [facility] WBC 5.1 x103 4.3-10. 19 28 [facility] [address] [place] [address] [phone] RBC 4.16 x106 3.80-5.30 Hemoglobin 12.6 g/dL 11.8-15.8 Hematocrit 36.8 % 35.0-47.0 MCV 88.2 fl 82.0-98.0 MCH 30.3 pg 27.5-33.5 MCHC 34.3 g/dL 32.0-36.0 RDW 12.9 % 11.5-14.5 Platelet Count 341 x103 130-400 MPV 7.3 fl 6.5-10.5 Segmented Neutrophils 58.8 % 44.0-74.0 Lymphocytes 31.9 % 15.0-45.0 Monocytes 6.9 % 2.0-13.0 Eosinophils 2.0 % 0.0-6.0 Basophils 0.4 % 0.0-2.0 Neutrophil Absolute 3.0 x103 1.4-7.0 Lymphocytes Absolute 1.6 x103 1.0-3.4 Monocyte Absolute 0.4 x103 0.2-1.0 Eosinophil Absolute 0.1 x103 0.0-0.5 Basophil Absolute 0.0 x103 0.0-0.2 Comprehensive Metabolic 10/27/2006 [facility] Glucose 83 mg/dL 70-100 [place] [address] [phone] BUN 14 mg/dL 4-18 Creatinine, Serum 0.9 mg/dL 0.5-1.2 Sodium 138 mmol/L 136-146 Potassium 4.5 mmol/L 3.5-5.3 Chloride 105 mmol/L 98-110 Carbon Dioxide 26 mmol/L 20-32 Albumin 4.2 g/dL 3.5-4.7 Protein, Total 6.9 g/dL 6.4-8.2 Calcium 9.0 mg/dL 8.4-10.4 Alkaline Phosphatase 68 U/L 10-118 Sgot (Ast) 20 U/L 3-40 SGPT (Alt) 10 U/L 7-50 Bilirubin, Total 0.40 mg/dL 0.30-1.20 Lipid 10/27/2006 [facility] Cholesterol, 249 mg/dL High 120-200 20 Profile 28 [facility] Total [place], [place] [id number] [phone] HDL Cholesterol 52 mg/dL 40-60 LDL Cholesterol, Calc. 168 mg/dL AB <130 21 Triglycerides 147 mg/dL 22 LDL/HDL Cholesterol 3.2 23 Chol/HDL Cholesterol 4.8 24 Laboratory 10/27/2006 [facility] TSH (Thyrotropin) 0.910 0.350-5.500 test finding [address] [place] [address] uIU/[place] [address] [phone] GFR (Calculated) >60 25 Laboratory test 10/02/2006 [facility] Thinprep Pap SEE IMAGE finding [address] [place] [address] [place] [address] PAUL/ASCUS [phone] Ua - Non Micro 10/02/2006 Family [facility] Appearance CLEAR (Fma) (607)- - Color LT YELLOW Glucose, Urine (Fma/CMC/CTX) NEG Bilirubin NEG Ketones TRACE SP Grav 1.020 Blood NEG PH 5.0 Protein NEG Urobil 0.2 Nitrite NEG Leukocytes (Fma/[facility]) NEG Ua - Non Micro (Fma New) 06/11/2005 Family [facility] Appearance CLEAR (607)- - Color LT YELLOW Glucose NEG Bilirubin NEG Ketones NEG SP Grav 1.010 Blood NEG LMP 05/28/05 PH 5.0 Protein NEG g/dL Urobil 0.2 Nitrite NEG Leukocytes NEG Laboratory test 06/11/2005 [facility] Thinprep Pap SEE IMAGE finding [address] [place] [address] [place] [address] PAUL/ASCUS [phone] Laboratory test 05/14/2004 [facility] Pap,TP W/HPV see image finding [address] [place] [address] [phone] Ua - Non Micro 05/14/2004 Family [facility] Appearance CLEAR (Fma New) (607)- - Color YELLOW Glucose NEG Bilirubin NEG Ketones NEG SP Grav >1.030 Blood NEG PH 5.0 Protein NEG Urobil 0.2 Nitrite NEG Leukocytes NEG Stool For Occult 03/01/2003 Family Medicine Occult Blood #1 02-21-03 NEGATIVE Blood X 3 (FM (607)- - Occult Blood #2 02-21-03 NEGATIVE Occult Blood #3 02-21-03 NEGATIVE Laboratory test 02/23/2003 [facility] TSH (Thyrotropin) 0.62 0.35 - finding 28 [facility] uIU/ml 4.67 [place] [address] [phone] CBC 02/23/2003 [facility] WBC 4.3 x10*3 4.3 - 28 [facility] 10.[address] [place] [address] [phone] RBC 4.38 x10*6 3.8 - 5.3 Hemoglobin 13.2 g/dL 11.8 - 15.8 Hematocrit 39.5 % 35.0 - 47.0 MCV 90.0 fl 82.0 - 98.0 MCH 30.2 pg 27.5 - 33.5 MCHC 33.5 g/dL 32.0 - 36.0 RDW 13.8 % 11.5 - 14.5 Platelet Count 266 x10*3 130.0 - 400.0 MPV 7.7 fl 6.5 - 10.5 Segmented Neutrophils 45.7 % 44.0 - 74.0 Lymphocytes 44.3 % 15.0 - 45.0 Monocytes 7.1 % 2.0 - 13.0 Eosinophils 2.1 % 0.0 - 6.0 Basophils 0.8 % 0.0 - 2.0 Neutrophil Absolute 2.0 x10*3 1.4 - 7.0 Lymphocytes Absolute 1.9 x10*3 1.0 - 3.4 Monocyte Absolute 0.3 x10*3 0.2 - 1.0 Eosinophil Absolute 0.1 x10*3 0.0 - 0.5 Basophil Absolute 0.0 x10*3 0.0 - 0.2 Lipid Profile 02/23/2003 [facility] Triglycerides 70 mg/dL 37.0 - 241.0 [address] [place] [address] [phone] Cholesterol, Total 214 mg/dL High 120.0 - 200.0 26 HDL Cholesterol 49 mg/dL 40.0 - 60.0 LDL Cholesterol, Calc. 151 mg/dL AB <130 27 LDL/HDL Cholesterol 3.1 28 Chol/HDL Cholesterol 4.4 29 Comprehensive 02/23/2003 [facility] Glucose 85 mg/dL 61.0 - 110.0 Metabolic [address] [place] [address] [phone] BUN 14 mg/dL 4.0 - 18.0 Creatinine, Serum 0.8 mg/dL 0.5 - 1.2 Sodium 138 mmol/L 136.0 - 145.0 Potassium 4.5 mmol/L 3.5 - 5.3 Chloride 104 mmol/L 98.0 - 107.0 Carbon Dioxide 27 mmol/L 23.0 - 33.0 Albumin 3.8 g/dL 3.6 - 4.5 Protein, Total 7.0 g/dL 6.2 - 8.0 Calcium 9.2 mg/dL 8.4 - 10.2 Alkaline Phosphatase 76 U/L 42.0 - 127.0 Sgot (Ast) 22 U/L 9.0 - 37.0 SGPT (Alt) 17 U/L 7.0 - 42.0 Bilirubin, Total 0.70 mg/dL 0.2 - 1.3 Ua - Non Micro ([facility]) 02/21/2003 Family Medicine Appearance CLEAR (607)- - Glucose, Urine ([facility]/CTX) NEGATIVE Bilirubin NEGATIVE Ketones NEGATIVE SP Grav 1.025 Blood NEGATIVE PH 5.0 Protein NEGATIVE Urobil 0.2 Nitrite NEGATIVE Leukocytes ([facility]) NEGATIVE CBC With Diff ([facility]) 08/31/2000 [facility] WBC 5.3 3.6-9.6 (607)- - Lymphocytes 46.7 % 20.5 - 51.1 Monocytes 4.4 % 1.7 - 9.3 Granulocytes 48.9 % 42.2 - 75.2 Lymphocytes 2.5 10^3/uL 0.7 - 4.9 Monocytes 0.2 10^3/uL 0.1 - 0.9 Granulocytes 2.6 10^3/uL 1.5 - 7.2 RBC 4.21 3.90-5.70 Hemoglobin 12.9 g/dL 12.1 - 17.2 Hematocrit 38.0 % 36.1 - 50.3 Mean Corpuscular Vol 90.4 82.2-97.4 Mean Corpuscular Hemaglobin 30.7 27.6-33.3 Mean Corpuscular Hemo Concen 33.9 33.0-34.8 RDW 13.5 11.6-13.7 Platelets 275 10^3/ul 150-400 Mean Platelet Volume 7.7 7.4-10.4 Ua - Non Micro ([facility] New) 08/26/2000 Family Medicine Appearance CLEAR YELLOW (607)- - Glucose - Bilirubin - Ketones TRACE SP Grav >=1.030 Blood - PH 5.0 Protein - Urobil 0.2 Nitrite - Leukocytes - Laboratory test 08/26/2000 [facility] Hematocrit 31 % 36.1 - 50.3 finding (607)- - Ua - Non Micro 01/03/1999 [facility] Appearance YELLOW CLEAR ([facility]) (607)- - SP Grav 1.020 Esterase - Nitrite - pH 6.5 Protein - Glucose - Ketones - Urobil -- Bilirubin - Blood - 1 SEE RESULT BELOW Name: MONICA ROJAS : [address]: Dali Burns NP Acct: [id number] Unit: [id number] AGE: 57 Location: [facility] Re12/29/17 SEX: F Status: REG REF SPEC: [id number] WISAM: 12/29/171134 [facility] DR: Dali Burns NP REQ: [id number] RECD: 12/29/17 STATUS: SOUT _ ORDERED: TP IMAGE ANALYS, HPV/Thin Prep, HPV 16/18 GENE COMMENTS: [id number] Negative for Intraepithelial lesion or Malignancy Date Time Test Result Flag (u) Normal Range 12/29/17 1134 @ HPV RNA RFLX GE Negative Negative @ @ The high-risk HPV types detected by the assay include: 16, @ 18, 31, 33, 35, 39, 45, 51, 52, 56, 58, 59, 66, and 68. A. Ectocervical/Endocervical Specimen Adequacy: Satisfactory of evaluation Transformation zone component not identified Patient Information: HPV: High risk HPV RNA testing regardless of pap results. Actual Specimen Date: 12/29/17 LMP If Unknown: 07/2017 ?: N Post Menopausal?: N Hysterectomy?: N Previous Abnormal Pap Smears?:N Signed by and Reported on: BARRETT Vee(ASC) [id number] This Pap test was evaluated with the assistance of the [employer] System. Due to cytologic findings at the investigation clerk microscope, comprehensive manual rescreening by a Materials Management Clerk may be required. The Pap Smear is a screening test designed to aid in the detection of premalignant and malignant conditions of the uterine cervix. It is not a diagnostic procedure and should not be used as the sole means of detecting cervical cancer. Both false- positive and false- negative reports do occur. Depending on your risk status, a Pap smear should be obtained and evaluated every 1-3 years. END OF REPORT DEPARTMENT OF PATHOLOGY, [address] [place] [address] Milton Atkinson M.D. Director CHAITANYA # [id number] 2 SURGERY 05/15/15 3 SURGERY 05/15/15 4 Because ethnic data is not always readily [...] 15-29 5 Kidney failure <15 (or dialysis) 5 SHOWING DOSAGE 6 SEE RESULT BELOW Name: MONICA ROJAS : [address]: Bee Spicer MD Acct: [id number] Unit: [id number] AGE: 54 Location: [facility] Re05/07/15 SEX: F Status: REG REF SPEC: [id number] WISAM: 05/07/15-[address] [facility] [address]: Bee Spicer MD REQ: [id number] RECD: 05/07/15 STATUS: JAMEY MAYER DR: Blossom Redd MD _ SOURCE: URINE SPDESC: ORDERED: Urine Culture COMMENTS: SURGERY 05/15/15 Procedure Result Reported Site Urine Culture Final 05/08/15- 1033 ML No growth of clinically significant organisms * ML - MAIN LAB ([facility]) . END OF REPORT * ML=Testing performed at Main Lab DEPARTMENT OF PATHOLOGY, [address] [place] [address] Milton Atkinson M.D. Director [facility] # [id number] 7 SPLIT SAMPLE 8 According to ATP-III Guidelines, HDL-C >59 mg/dL is considered a negative risk factor for CHD. 9 The calculation for the VLDL cholesterol is not valid when triglyceride level is >400 mg/dL. 10 Triglyceride result indicated is too high for an accurate LDL cholesterol estimation. 11 Microscopic follows if indicated. 12 INTERNATIONAL NORMALIZED RATIO(INR) INDICATIONS INR RANGE PATIENTS NOT ON ANTICOAGULANT THERAPY * DEEP VENOUS THROMBOSIS 2.0-3.0 PULMONARY EMBOLISM 2.0-3.0 ATRIAL FIBRILLATION 2.0-3.0 PROPHYLAXIS: 2.0-3.0 HIGH-RISK SURGERY TISSUE HEART VALVES ATRIAL FIBRILLATION ACUTE MYOCARDIAL INFARCTION VALVULAR HEART DISEASE MECHANICAL PROSTHETIC VALVE 2.5-3.5 * USE OF INR VALUES SHOULD BE LIMITED TO PATIENTS WHO ARE ON STABLE ORAL ANTICOAGULANT THERAPY. AN INR ABOVE 5.0-5.5 APPEARS TO BE ASSOCIATED WITH AN UNACCEPTABLY HIGH RISK OF BLEEDING. 13 [employer], [employer] DEPARTMENT OF PATHOLOGY or Ext. [phone], Fax ENTRY LEVEL CYTOLOGY REPORT Patient: MONICA ROJAS : 1960 AGE: 53 Y SEX: F Acct: [id number] Procedure Date: 11/14/2014 Date Received: 11/15/2014 Requesting Provider: VASQUEZ LOVETT Location[place] [facility] Case No. [id number] Requisition #: [id number] CYTOLOGIC INTERPRETATION: SPECIMEN ADEQUACY SATISFACTORY FOR EVALUATION, ENDOCERVICAL TRANSFORMATION ZONE COMPONENT PRESENT GENERAL CATEGORIZATION NEGATIVE FOR INTRAEPITHELIAL LESIONS OR MALIGNANCY RECOMMENDATIONS Refer to the corresponding web sites for 2012 updated general recommendation guidelines of U.S. preventive service task force for cervical cancer screening, and www.asccp.org//wckcsifns8959. COMMENTS Thin Prep Pap tests are examined with an FDA approved location-guidance system. SPECIMEN SUBMITTED: * * (HPVII) THIN PREP W/HPV (LSIL/ASC/PAUL) * * ENDOCERVICAL RELEVANT HISTORY: LMP: 11/14/2014 Previous smear date: ??/??/2011 Menarche: Y : 5 Prev.normal: 2011 Para: 3 IUD: Y Screened/Rescreened Electronically Signed Sign Out Date/Time: by: by: BARRETT WASHINGTON(ASCP) 11/15/2014 14:09 Note: The Pap smear is a screening test designed to aid in the detection of premalignant and malignant conditions of the uterine cervix. It is not a diagnostic procedure and should not be used as the sole means of detecting cervical cancer. Both false-positive and false-negative reports do occur. 00 UA Pap Smear performed at [facility] Dir: [place], [address] [place] [phone] rn transition [facility] [place] Dir: Vivienne Arita MD, [address] [place] [phone] 02 [facility] [place] Dir: Cliff Dawn MD, [facility] [phone] For inquiries regarding HPV test results, the physician may contact [facility]: [phone] . 14 [employer] DEPARTMENT OF PATHOLOGY or Extension [phone] ENTRY LEVEL CYTOLOGY REPORT PATIENT: MONICA ROJAS : 1960 AGE: 50 Y SEX: F ACCT: [id number] PROCEDURE DATE: 06/23/2011 DATE RECEIVED: 06/24/2011 REQUESTING PHYSICIAN: KE LICONA CNP-F LOCATION: [facility] Case No. [id number] PATIENT DATA: [id number] SPECIMEN SUBMITTED: * * (HPVII) THIN PREP W/HPV (LSIL/ASC/PAUL) * * ENDOCERVICAL RELEVANT HISTORY: LMP: 05/29/2011 Prev.normal: 07/2009 : 4 Para: 3 SPECIMEN ADEQUACY SATISFACTORY FOR EVALUATION, ENDOCERVICAL TRANSFORMATION ZONE COMPONENT PRESENT GENERAL CATEGORIZATION NEGATIVE FOR INTRAEPITHELIAL LESIONS OR MALIGNANCY RECOMMENDATIONS Thin Prep Pap tests are examined with an FDA approved location-guidance system. ADDITIONAL COPIES SENT TO: Screened/Rescreened Electronically Signed Sign Out Date/Time: by: by: LETTY VELASQUEZ, 06/25/2011 13:15 CT(ASCP) The Pap smear is a screening test designed to aid in the detection of premalignant and malignant conditions of the uterine cervix. It is not a diagnostic procedure and should not be used as the sole means of detecting cervical cancer. Both false-positive and false-negative reports do occur. Performed @ [facility], [employer] [address] [place] [address] 15 [employer], [employer] DEPARTMENT OF PATHOLOGY or Extension [phone] ENTRY LEVEL CYTOLOGY REPORT PATIENT: MONICA ROJAS : 1960 AGE: 48 Y SEX: F ACCT: [id number] PROCEDURE DATE: 08/20/2009 DATE RECEIVED: 08/21/2009 REQUESTING PHYSICIAN: BLOSSOM RDED MD LOCATION: [facility] Case No. [id number] PATIENT DATA: [id number] SPECIMEN SUBMITTED: * * (HPVII) THIN PREP W/HPV (LSIL/ASC/PAUL) * * ENDOCERVICAL RELEVANT HISTORY: : 4 Para: 3 Contraceptive: VAS Prev.normal: 09/05 Comment: LMP CURRENT SPECIMEN ADEQUACY SATISFACTORY FOR EVALUATION, ENDOCERVICAL TRANSFORMATION ZONE COMPONENT PRESENT GENERAL CATEGORIZATION NEGATIVE FOR INTRAEPITHELIAL LESIONS OR MALIGNANCY ADDITIONAL COPIES SENT TO: Screened/Rescreened by: Electronically Signed by: BARRETT BLAKE(ASCP) Signed Date/Time 08/22/2009 11:08 Thin Prep Pap tests are examined with an FDA-approved location-guidance system (74533). Performed @ [facility], [employer] [address] [place] [address] "" 16 FASTING; 1 sst; 1 purple top tube 17 mL/min/1.73m2 . Normal Function or Mild Renal Disease, if clinically at risk: >or=60 Moderately decreased: 30 - 59 Severely decreased: 15 - 29 Renal Failure: <15 . Please note that the MDRD equation requires an additional adjustment for -Americans (multiply the GFR result by 1.210). . Glomerular Filtration Rate (GFR) is estimated based on the MDRD equation, which assumes a steady state for creatinine (Summer Int Med 139/2 137-149, 2003), as recommended by the National Kidney Disease Education Program in conjunction with the National Institutes of Health and the National Kidney Foundation. . Clinical conditions in which it may be necessary to measure GFR by using clearance methods include extremes of age and body size, severe malnutrition or obesity, diseases of skeletal muscle, paraplegia or quadriplegia, vegetarian diet, rapidly changing kidney function, and calculation of the dose of potentially toxic drugs that are excreted by the kidneys. 18 NEGATIVE FOR GROUP A BETA STREPTOCOCCUS 19 FASTING; 2 SST, 1 LAV TOP 20 Cholesterol Risk Levels (NIH) Recommended: under 200 mg/dl Borderline : 200-239 mg/dl High Risk : Above 240 mg/dl 21 The National Cholesterol Education Program recommends the following ranges for LDL Cholesterol: Optimal under 100 mg/dl Near or above Optimal 100 - 129 mg/dl Borderline High 130 - 159 mg/dl High 160 - 189 mg/dl Very High above 190 mg/dl 22 Triglyceride Risk Levels: Normal : <150 mg/dl Borderline : 150-199 mg/dl High : 200-499 mg/dl Very High : >500 mg/dl 23 LDL/HDL Risk Ratio Levels MALE FEMALE 1/2 X Average 1.00 1.47 Average 3.55 3.22 2 X Average 6.25 5.03 3 X Average 7.99 6.14 24 CHOL/HDL Risk Ratio Levels MALE FEMALE 1/2 X Average 3.4 3.3 Average 5.0 4.4 2 X Average 9.5 7.0 3 X Average 24.0 11.0 25 mL/min/1.73m2 . Normal Function or Mild Renal Disease, if clinically at risk: >or=60 Moderately decreased: 30 - 59 Severely decreased: 15 - 29 Renal Failure: <15 . Please note that the MDRD equation requires an additional adjustment for -Americans (multiply the GFR result by 1.210). . Glomerular Filtration Rate (GFR) is estimated based on the MDRD equation, which assumes a steady state for creatinine (Summer Int Med 139/2 137-149, 2003), as recommended by the National Kidney Disease Education Program in conjunction with the National Institutes of Health and the National Kidney Foundation. . Clinical conditions in which it may be necessary to measure GFR by using clearance methods include extremes of age and body size, severe malnutrition or obesity, diseases of skeletal muscle, paraplegia or quadriplegia, vegetarian diet, rapidly changing kidney function, and calculation of the dose of potentially toxic drugs that are excreted by the kidneys. . 26 Cholesterol Risk Levels (NIH) Recommended: under 200 mg/dl Borderline : 200-239 mg/dl High Risk : Above 240 mg/dl . 27 LDL Cholesterol Risk Levels (NIH) Recommended: under 130 mg/dl Borderline: 131 - 159 mg/dl High Risk: above 160 mg/dl . 28 LDL/HDL Risk Ratio Levels MALE FEMALE 1/2 X Average 1.00 1.47 Average 3.55 3.22 2 X Average 6.25 5.03 3 X Average 7.99 6.14 . 29 CHOL/HDL Risk Ratio Levels MALE FEMALE 1/2 X Average 3.4 3.3 Average 5.0 4.4 2 X Average 9.5 7.0 3 X Average 24.0 11.0 . Procedures Date Code Description Status 03/18/2018 02119 Pulse Oximetry Completed 12/31/2017 [id number] Mammogram Completed 12/29/2017 [id number] Mammogram Completed 06/29/2015 [id number] Mammogram Completed 04/23/2015 72808 Electrocardiogram Complete Completed 01/26/2015 67583 Dxa Bone Density Study One Or More Sites Axial Skeleton Completed 11/14/2014 32990 Insertion of intrauterine device (IUD) Completed 01/02/2014 [id number] Colonoscopy Completed 11/28/2013 [id number] Mammogram Completed 08/31/2009 [id number] Mammogram Completed 08/20/2009 36033 Electrocardiogram Complete Completed 11/02/2006 18003696 Mammogram Completed 10/02/2006 36228 Electrocardiogram Complete Completed Encounters Type Date Location Provider Dx Diagnosis Office Visit 03/18/2018 [facility] Dali J18.9 Pneumonia, 3:00p Grant, ELECTRICAL CONTROLS TECHNICIAN unspecified organism Office Visit 12/29/2017 Main Office Dali Z12.39 Encounter for oth 10:30a Grant, ELECTRICAL CONTROLS TECHNICIAN screening for malignant neoplasm of breast R60.0 Localized edema Z01.419 Encntr for manager gyn exam (general) (routine) w/o abn findings Z23 Encounter for immunization Office Visit 05/14/2016 11:30a Main Office Stefanie Licona, L03.012 Cellulitis of left ELECTRICAL CONTROLS TECHNICIAN finger D48.5 Neoplasm of uncertain behavior of skin Office Visit 04/23/2015 3:00p [facility] Office Blossom Redd, M25.552 Pain in left M.D. hip Z23 Encounter for immunization Z01.818 Encounter for other preprocedural examination Z00.00 Encntr for general adult medical exam w/o abnormal findings Office Visit 01/15/2015 8:30a Main Office Dali V25.8 Contraceptive Grant, ELECTRICAL CONTROLS TECHNICIAN Management Spec Other 627.2 Menopausal Or Female Climacteric State, Symptomatic Office Visit 11/14/2014 8:30a Main Office Dali V25.11 Encounter For Grant, ELECTRICAL CONTROLS TECHNICIAN Insertion Of Intrauterine Contraceptive Device V72.31 Routine Technical Training Manager Examination Office Visit 10/25/2014 1:45p Main Office Dali V25.8 Contraceptive Grant, ELECTRICAL CONTROLS TECHNICIAN Management Spec Other Office Visit 11/18/2013 11:30a Main Office Stefanie Licona, 692.6 Dermatitis Contact ELECTRICAL CONTROLS TECHNICIAN Due To Plants (Except Food) V76.10 Screening For Malignant Neoplasm Breast V76.51 Screening For Malignant Neoplasms Colon Office Visit 06/23/2011 2:30p Main Office Stefanie Licona, V72.31 Routine Technical Training Manager ELECTRICAL CONTROLS TECHNICIAN Examination 719.44 Pain Joint Hand Office Visit 08/20/2009 [facility] Blossom Arzate 448.1 Nevus Non-Neoplastic 8:00a Office Devorah Redd V17.3 History Family Ischemic Heart Disease 272.4 Hyperlipidemia Other Unspec V70.0 Examination General Medical Routine AT Health Care Facility V76.41 Screening Malignant Neoplasm Rectum 599.72 Microscopic Hematuria Office Visit 11/23/2006 9:30a Main Office Erica Rolon, 465.9 URI Upper Afnp-C Respiratory Infections Acute Unspec Sites Office Visit 10/02/2006 3:00p Main Office Blossom Redd V70.0 Examination General Devorah Medical Routine AT [facility] V17.3 History Family Ischemic Heart Disease 719.45 Pain Joint Pelvic Region & Thigh V76.41 Screening Malignant Neoplasm Rectum V72.83 Examination Preoperative Other Spec Office Visit 06/11/2005 10:45a Main Office Stefanie Licona V72.31 Routine Technical Training Manager ELECTRICAL CONTROLS TECHNICIAN Examination Office Visit 05/14/2004 2:30p [facility] Candie Shaikh V72.31 Routine Technical Training Manager Afnp-C Examination Office Visit 02/21/2003 6:45p Main Office Blossom Arzate V70.0 Examination Devorah Redd General Medical Routine AT Health Care Facility Office Visit 10/31/2002 3:00p Main Office Stefanie Licona, 692.9 Eczema NOS, ELECTRICAL CONTROLS TECHNICIAN Contact Dermatitis NOS Office Visit 10/11/2002 1:30p Main Office Stefanie Licona, 845.00 Sprains & Strains ELECTRICAL CONTROLS TECHNICIAN Ankle Unspec Site 372.00 Conjunctivitis Acute Unspec Office Visit 01/18/2001 4:00p Main Office Larry Hannah M.D. Office Visit 08/26/2000 7:30p Main Office Erica Rolon, Afnp-C Office Visit 07/25/2000 10:10a Main Office Milton Waters M.D. Office Visit 02/22/2000 10:15a Main Office Rosemarie Au GUSSET FOLDER-F Plan of Treatment 09/29/2018 - Olu Arnold MDZ01.818 Encounter for other preprocedural examinationAllComments:Medication Management Patient Understands medications she 's taking? Yes No Are there Barriers to Adherence? Yes No Has the patient been asked about herbal supplements and therapies, and OTC meds? Yes No
--- OUTSIDE RECORDS SUMMARY | 2018-10-21 07:04 | XMS REPORT | Continuity of Care Document ---
:1960 External Reference #:[id number] Author Name Jacquelyn Good Care Team Providers Name Role Phone Oneal Patel MD Care Team Information Veterinary Technician Instructor Unavailable Jass Redd MD Primary Care Physician Unavailable Payers Date Identification Numbers Payment Provider Subscriber Effective: 2014 Policy Number: [id number] [facility] Cliff Rojas PayID: [id number] [address] [place] [address] Advance Directives Description No Information Available Problems [...] History Medications Amoxicillin take 4 tabs by 4cfay Campbell, 07/31/2015 - 500mg mouth 1 hour prior M.D. 07/02/2018 Capsules to dental work No Active Unknown 06/27/2015 - Medications 07/31/2015 Percocet 1-2 tablets by 90tabs M16.12 [place] 05/07/2015 - 5-325mg mouth every 4-6 SANDIP [place] 06/22/2015 Tablets hours as needed for pain Colace 1 by mouth up to 3 90caps M16.12 [place] 05/07/2015 - 100mg times a day as SANDIP [place] 06/22/2015 Capsules needed for constipation. Coumadin 1 by mouth daily 45tabs M16.12 [place] 05/07/2015 - 2mg post operatively or SANDIP [...] Date Facility Test Result H/L Range Note Xray 05/14/2016 [facility] Hip Left 2 <pending> [address] [place] [address] Pelvis [address] - [phone] Urinalysis Profile 05/07/2015 [facility] Urine Color Yellow N [address] [place] [address] [phone] Urine Appearance Clear N Urine Specific [place] 1.012 N 1.010-1.030 Urine pH 5.0 N [...] Present Abnormal Absent CBC No Diff 05/07/2015 [facility] White Blood 6.7 10^3/uL N 4.8-10.[address] [place] [address] [phone] Red Blood Count 4.60 10^6/uL N 4.0-5.4 Hemoglobin 13.6 g/dL N 12.0-16.0 Hematocrit 42 % N 35-47 Mean Corpuscular Volume 90 fL N 80-97 Mean Corpuscular Hemoglobin 30 pg N 27-31 Mean Corpuscular HGB Conc 33 g/dL N 31-36 Red Cell Distribution Width 15 % N 10.5-15 Platelet Count 353 10^3/uL N 150-450 Mean Platelet Volume 7 um3 Low 7.4-10.4 Inr/Protime 05/07/2015 [facility] Inr 0.99 N 0.89-1.11 [address] [place] [address] [phone] Laboratory test 05/07/2015 [facility] Partial 33.2 seconds N 26.0-36.3 2 finding [address] [facility] [place] [address] PTT [phone] Comp Metabolic 05/07/2015 [facility] Sodium 136 mmol/L N 133- 145 Panel [address] [place] [address] [phone] Potassium 4.0 mmol/L N 3.5-5.0 Chloride 102 [...] 87.9 N >60 Egfr 113.0 N >60 3 Type & Screen 05/07/2015 [facility] Patient Blood Type B Positive N [address] [place] [address] [phone] Antibody Screen POSITIVE N Laboratory test 05/07/2015 [facility] Antibody Identification M 4 finding [address] [place] [address] [phone] Antibody Id Autocontrol 0 N Direct Antiglobulin Test NEGATIVE N Urine Culture And Sensitivities SEE RESULT BELOW 5 1 SURGERY 05/15/15 2 SURGERY 05/15/15 3 Because ethnic data is not always readily [...] 15-29 5 Kidney failure <15 (or dialysis) 4 SHOWING DOSAGE 5 SEE RESULT BELOW Name: MONICA ROJAS : [address]: Bee Spicer MD Acct: [id number] Unit: [id number] AGE: 54 Location: [facility] Re05/07/15 SEX: F Status: REG REF SPEC: [id number] WISAM: 05/07/15-[address] [facility] [address]: Bee Spicer MD REQ: [id number] RECD: 05/07/15-1233 STATUS: JAMEY MAYER DR: Jass Redd MD _ SOURCE: URINE [facility]: ORDERED: Urine Culture COMMENTS: SURGERY 05/15/15 Procedure Result Reported Site Urine Culture Final 05/08/15- 1033 ML No growth of clinically significant organisms * ML - MAIN LAB ([facility]) . END OF REPORT * ML=Testing performed at Main Lab DEPARTMENT OF PATHOLOGY, [address] [place] [address] Milton Atkinson M.D. Director [facility] # [id number] Procedures Date Code Description Status 05/15/2015 46105 THR Total Hip Replacement Completed 05/15/2015 76828 THR Total Hip Replacement Completed Encounters Type [...] Office Visit 05/15/2016 [facility]p [facility] Yehuda White, L72.11 Pilar cyst Of Fredis DANIELS, FACS L03.012 Cellulitis of left finger Office Visit 05/14/2016 1:15p [facility] following joint C.M.A. replacement surgery Z96.642 Presence of left artificial hip joint M25.552 Pain in left hip Office Visit 08/29/2015 8:00a [facility] following joint C.M.A. replacement surgery Z96.642 Presence [...] right hipFollow up:Follow up: 2 weeks after lvjnwtqG39.11 Unilateral primary osteoarthritis, right hip
[2018-10-21] MEDS ORDERED: Dexamethasone IV* 4 MG/ML 1 ML (4 MG) ONE (07:32)
[2018-10-21] MEDS ORDERED: Buffered Lidocaine 1% SYRIN* 1 ML/SYRINGE INTRADERM ONE (07:33)
[2018-10-21] MEDS ORDERED: ceFAZolin 2 GM PREMIX in ORs 2 GM/50 ML BAG IVPB ONE (07:33)
[2018-10-21] MEDS ORDERED: Gabapentin CAP(*) 300 MG ONE (07:33)
[2018-10-21] MEDS ORDERED: celeCOXIB CAP* 200 MG ONE (07:33)
[2018-10-21] MEDS ORDERED: Famotidine IV* 10 MG/ML 2 ML (20 mg) ONE (07:33)
[2018-10-21] MEDS ORDERED: Acetaminophen IV 1GM/100ML * 100 ML ONE (08:05)
[2018-10-21] MEDS ORDERED: fentaNYL* 50 MCG/ML 2 ML VIAL (100 MCG VIAL) ONE (08:43)
[2018-10-21] MEDS ORDERED: Midazolam* 1 MG/ML 5 ML VIAL (5 MG) ONE ×2 (08:43→09:58)
[2018-10-21] MEDS ORDERED: Propofol* 10 MG/ML 20 ML BTL ONE (08:43)
[2018-10-21] MEDS ORDERED: KETAMINE HCL* 50 MG/ML 10 ML VIAL ONE (08:43)
[2018-10-21] MEDS ORDERED: Ondansetron INJ* 2 MG/ML VIAL ONE (08:43)
[2018-10-21] MEDS ORDERED: ROPIVACAINE 5 MG/ML 30 ML BTL (0.5%) ONE (08:51)
[2018-10-21] MEDS ORDERED: Ropivacaine (OR use only) 2 MG/ML 10 ML ONE (08:51)
[2018-10-21] MEDS ORDERED: Bupivacaine 0.5% SDV PF* 30ML VIAL ONE (09:23)
[2018-10-21] MEDS ORDERED: fentaNYL* 50 MCG/ML 2 ML VIAL (100 MCG VIAL) IV PRN (10:11)
[2018-10-21] MEDS ORDERED: HYDROmorphone INJ1* 1 MG/ML SYRINGE IV PRN (10:11)
[2018-10-21] MEDS ORDERED: DiMENhydriNATE IV* 50 MG/ML VIAL IV PUSH PRN (10:11)
[2018-10-21] MEDS ORDERED: Ondansetron INJ* 2 MG/ML VIAL IV PRN ×2 (10:11→11:59)
[2018-10-21] MEDS ORDERED: Naloxone* 0.4 MG/ML 1 ML VIAL IV PRN (10:11)
[2018-10-21] MEDS ORDERED: Magnesium Hydroxide LIQ* 30 ML UDC PO PRN (11:59)
[2018-10-21] MEDS ORDERED: oxyCODONE/Acetamin 5/325 MG* TAB PO PRN (11:59)
[2018-10-21] MEDS ORDERED: diPHENhydraMINE IV* 50 MG/ML 1 ml VIAL (BENADRYL) IV PRN (11:59)
[2018-10-21] MEDS ORDERED: Morphine INJ* 2 MG/ML 1 ML SYRINGE (TWO MG - NEW SYRINGE VERSION) IV PRN (11:59)
[2018-10-21] MEDS ORDERED: Polyethylene Glycol 3350* 17 GM PACKET PO PRN (11:59)
[2018-10-21] MEDS ORDERED: Cyclobenzaprine TAB* 10 MG PO PRN (11:59)
[2018-10-21] MEDS ORDERED: Bisacodyl SUPP* 10 MG SUPP PR PRN (11:59)
[2018-10-21] MEDS ORDERED: traMADol TAB* 50 MG PO PRN (11:59)
[2018-10-21] MEDS ORDERED: diPHENhydraMINE PO* 25 MG PO PRN (11:59)
--- NOTE | 2018-10-21 16:43 | PN ---
Progress Note - Progress Note Date of Service: 10/21/18 Note: Patient seen at bedside in PACU s/p right total hip arthroplasty. Alert and oriented. Her block is wearing off slowly, just beginning to get movement of the ankle, still cannot fully dorsiflex, some paresthesia remains but feels pressure. Dressing dry right hip.
[2018-10-21] MEDS: Lactated Ringers 1000 ML Bag* 1,000 ML IV SCH (17:37)
[2018-10-21] MEDS: ceFAZolin 1 GM ADVAN(*) 1 GM in NS 0.9% 50 ML* 50 ML IVPB SCH (18:52)
--- NOTE | 2018-10-21 19:12 | OP ---
Operative Report - Blank - Operative Report Date of Operation: 10/21/18 Note: KELLY ROJAS 1960 Date Of Surgery: 10/21/18 Bee Spicer MD Busboy: Maia KAHTAR did help throughout the procedure with preparation of the hip, wound retraction, manipulation of the hip, and wound closure. Anesthesiologist: Vicky Malcolm MD Anesthesia Type: Spinal Preoperative Diagnosis: Right severe degenerative osteoarthritis of the hip Postoperative Diagnosis: As above Procedure Performed: Right Total Hip Arthroplasty Complications: None Specimen: Femoral head and acetabular reamings sent to pathology. Hardware used: This is uncemented Avis total hip arthroplasty hardware for the femur a size right femoral component, for the acetabulum a size 50 D trident II tritanium cluster hole shell with 2 low profile 6.5 mm screws both length 15mm, for the insert a size 32D trident x3 polyethylen insert, and for the femoral head a size 32 - 4 ceramic biolox delta V40 femoral head. Brief history/Indication: KELLY ROJAS was known in clinic and had a history of severe right hip pain. She failed conservative treatment with anti- inflammatories, pain pills, intra-articular injections and physical therapy. She elected to undergo right total hip arthroplasty due to continued pain and decreased quality of life. Radiographs showed severe end stage osteoarthritis of the hip with bone on bone contact. Informed consent was obtained from the patient. She understood the risks of surgery included but were not limited to: bleeding, infection, damage to nearby structures, intraoperative fracture, nerve palsy, failure of the hardware, early loosening, stiffness or loss of motion, dislocation, leg length discrepancy, anesthesia complications, stroke, heart attack, blood clot and . She wished to proceed. Intra-Operative findings: Intraoperatively the patient was noted to have severe loss of cartilage of the acetabulum and femoral head. The acetabulum was extremely shallow and dysplastic. Description of the Procedure: KELLY ROJAS was identified in the preanesthesia unit. Her right hip was marked as the correct operative side. Informed consent was signed and placed in the chart. The patient was taken to the operating room and placed under anesthesia without complication. A haddad catheter was placed. The patient was placed on the peg board with all bony prominences well padded. The right lower extremity was prepped and draped in the usual sterile fashion. Preoperative time -out was made to correctly identify the patient, side and site. Appropriate intraoperative antibiotics were given within one hour of incision. A standard posterior incision was made and carried sharply down to the lateral fascia. A new 10 blade was used to make an incision in the fascia in line with the skin incision. A charnley retractor was placed. The piriformis and conjoined tendons were identified and elevated off the posterolateral femur using electrocautery. These were tagged with number 5 Ethibond. Next electrocautery was used to make a posterolateral capsular flap and this was tagged with number 5 Ethibonds. The hip was carefully dislocated. Lesser trochanter to the center of the femoral head was measured at 55 mm. The oscillating saw was used to make the femoral neck cut. The femoral head was carefully removed. The femur was retracted anteriorly and the acetabular retractors were placed. Long-handled knife was used to sharply remove any remaining labrum from the acetabular rim. The acetabulum was sequentially reamed up to a size 49. A bleeding subchondral bone bed was obtained. A trial cup was placed and had excellent fit and stability. A 50 D trident II tritanium with 2 15mm screws was placed and had excellent stability with appropriate anteversion and abduction angle. A size 32 D polyethylene liner was impacted into the acetabular shell. The liner was checked for stability and was stable. Next attention was turned to preparation of the femoral canal. A canal finder was used to enter the proximal femur. The femoral canal was sequentially broached up to a size 3 femoral broach trial. A trial neck and 32 - 4 trial femoral head was chosen. Lesser trochanter to center of the femoral head measurement was satisfactory. The hip was reduced and taken through a range of motion. The hip was stable in all positions with good soft tissue tension and appropriate leg lengths. The hip was dislocated and all trials were removed. The final implant chosen was a size 3 accolade II with 132 neck. This stem was impacted into the femoral canal without difficulty. The stem was stable with appropriate anteversion. The femoral head chosen was a 32 - 4 ceramic head. The head was impacted onto the femoral neck without difficulty. The final lesser trochanter to center of the femoral head measurement was satisfactory. The hip was reduced and taken through a range of motion. The hip was stable in all positions with good soft tissue tension and appropriate leg lengths. The hip was copiously irrigated with sterile saline. The previously tagged capsule and tendons were repaired to the posterolateral femur through two trochanteric drill holes. The lateral fascia layer was closed using number 1 vicryls. The rest of the incision was closed in a layered fashion using 0 and 2-0 vicryls. The skin was closed using 3-0 monocryl suture and Dermabond. Sterile adaptic, 4x4s and paper tape was used to cover the incision. The patients anesthesia was reversed without difficulty. She was taken to the PACU in stable condition. Intended weight-bearing will be as tolerated with posterior hip precautions.
[2018-10-21] MEDS: Acetaminophen TAB* 325 MG PO SCH (19:35)
[2018-10-21] MEDS: Docusate CAP* 100 MG PO SCH (20:50)
[2018-10-21] MEDS: Magnesium Hydroxide LIQ* 30 ML UDC PO SCH (20:50)
[2018-10-22] MEDS: ceFAZolin 1 GM ADVAN(*) 1 GM in NS 0.9% 50 ML* 50 ML IVPB SCH ×2 (03:27→10:48)
[2018-10-22] MEDS: oxyCODONE/Acetamin 5/325 MG* TAB PO PRN ×2 (03:27→13:28)
[2018-10-22] MEDS: Lactated Ringers 1000 ML Bag* 1,000 ML IV SCH (03:28)
[2018-10-22] MEDS: Acetaminophen TAB* 325 MG PO SCH ×2 (03:31→11:13)
[2018-10-22 07:37] LABS: Hematocrit 37 % (35-47); Hemoglobin 12.5 g/dL (12.0-16.0); Mean Platelet Volume 7.5 fL (7.4-10.4); Platelet Count 263 10^3/uL (150-450)
[2018-10-22] MEDS: Magnesium Hydroxide LIQ* 30 ML UDC PO SCH (07:50)
[2018-10-22 07:55] LABS: BUN/Creatinine Ratio 20.3 (8-20); Calcium 8.7 mg/dL (8.6-10.3); EGFR African American 116.6 (>60); EGFR Non-African American 96.3 (>60); Potassium 4.1 mmol/L (3.5-5.0)
[2018-10-22] MEDS: oxyCODONE TAB* 5 MG TAB PO PRN ×2 (08:27→16:14)
[2018-10-22] MEDS: Docusate CAP* 100 MG PO SCH (08:28)
[2018-10-22] MEDS ORDERED: Apixaban* 2.5 MG TAB PO SCH (09:00)
--- NOTE | 2018-10-22 10:29 | DS ---
Orthopedic Discharge Summary - Discharge Summary Date of Admission:10/21/18 Date of Discharge: 10/22/18 Date of Surgery: Attending Orthopedic Provider: Dr. Spicer Pre-operative Diagnosis: Degenerative arthritis right hip Operative Procedure: Right total hip arthroplasty Disposition of Patient: home Condition of Patient: Stable History: KELLY ROJAS is a 57 year old F with years of increasingly severe right hip pain. Patient has failed conservative management and has elected to undergo a right total hip replacement Hospital Course: KELLY was admitted to [facility] on 10/21/18. Patient underwent a right total hip without complication followed by a brief recovery in PACU and transfer to the Short Stay Surgical Unit in stable condition. Our hospitalist service, physical therapy and occupational therapy also participated in this patients care. Post-op day 1: patient was alert and in no acute distress. Dressing was clean, dry and intact. Operative extremity dorsiflexion and plantarflexion intact, sensation intact to light touch distally , DP2+. Post-op day two: dressing was changed, incision was clean, dry and intact. Patient was deemed to be medically and orthopedically stable for discharge. Physical therapy goals were met. Home Medications Medication Instructions Recorded Confirmed Type Apixaban* [Eliquis*] 2.5 mg PO BID #60 tab 10/22/18 Rx Docusate CAP* [Colace Cap*] 100 mg PO BID cap 10/22/18 Rx oxyCODONE/Acetamin 5/325 MG* 1 tab PO Q4H PRN #42 tab MDD 6 10/22/18 Rx [Percocet 5/325 TAB*] Discharge home WBAT RLE post hip precautions Eliquis bid 1 month post op Percocet 5/325 -[facility] out patient PT Follow up 10-[address] Spicer
[2018-10-22 15:49] VITALS: BP 102/58
== END 2018-10-22 16:40 | disposition home or self-care (01) | DRG 301 ==
LOC: AA 07:00 → SSU 17:44
PROVIDERS: ADMIT Orthopaedic Surgery Adult Reconstructive Orthopaedic Surgery; ATTEND Orthopaedic Surgery Adult Reconstructive Orthopaedic Surgery
PROC: 0SR904A Replacement of Right Hip Joint with Ceramic on Polyethylene Synthetic Substitute, Uncemented, Open Approach (ICD-10-PCS; principal; 2018-10-21 08:45)
DX: M16.11 Unilateral primary osteoarthritis, right hip (principal); Z79.01 Long term (current) use of anticoagulants; Z82.49 Family history of ischemic heart disease and other diseases of the circulatory system; Z72.89 Other problems related to lifestyle; Z96.642 Presence of left artificial hip joint; Z82.61 Family history of arthritis; Z80.43 Family history of malignant neoplasm of testis
CPT/HCPCS: 36415; 72170; 80048; 85014; 85018; 85049; A9270-GY; C1713; C1776; J0690; J1100; J2250; J2405; J2704; J2795; J3010; J3490